=== PATIENT | female | born 1970 | race Caucasian/White ===

== ENCOUNTER 2022-10-24 04:16 | Day surgery (SDC) | payer BC ==
[2022-10-10 17:22] VITALS: BMI 25.5
[2022-10-24] MEDS ORDERED: LIDOCAINE HCL/PF 2% SDV 5ML VIAL ONE (12:04)
[2022-10-24] MEDS ORDERED: ROCURONIUM BROMIDE 50 MG/5 ML SYRINGE ONE (12:04)
[2022-10-24] MEDS ORDERED: PROPOFOL 20 ML ONE (12:04)
[2022-10-24] MEDS ORDERED: MIDAZOLAM HCL 2 MG/2 ML SINGLE DOSE VIAL ONE (12:04)
[2022-10-24] MEDS ORDERED: BUPIVACAINE HCL/PF 0.5% (5MG/ML) 10 ML VIAL ONE (12:09)
[2022-10-24] MEDS ORDERED: BUPIVACAINE HCL/PF 0.5% (5MG/ML) 10 ML VIAL IJ ONE (12:53)
[2022-10-24] MEDS ORDERED: NEOSTIGMINE METHYLSULFATE 0.5 MG/1 ML - 10 ML MDV ONE (13:23)
[2022-10-24] MEDS ORDERED: IBUPROFEN 600 MG TABLET (FP) PO PRN (13:46)
[2022-10-24] MEDS ORDERED: IBUPROFEN 800 MG/8 ML IJ IVPB PRN (13:46)
[2022-10-24] MEDS ORDERED: oxyCODONE HCL 5 MG TABLET PO PRN (13:46)
[2022-10-24] MEDS ORDERED: ONDANSETRON 4 MG/2 ML VIAL IVPUSH PRN (13:46)
[2022-10-24] MEDS ORDERED: LACTATED RINGERS SOLUTION 1,000 ML IV SCH (14:00)
[2022-10-24] MEDS ORDERED: ELECTROLYTE-148 SOLN 1,000 ML IV SCH (14:00)
[2022-10-24] MEDS ORDERED: IBUPROFEN 800 MG/8 ML IJ IVPB ONE (14:41)
[2022-10-24] MEDS ORDERED: oxyCODONE HCL 5 MG TABLET ONE (15:59)
[2022-10-24] MEDS ORDERED: oxyCODONE HCL 5 MG TABLET PO ONE (16:00)
[2022-10-24 16:08] VITALS: RESP 16
[2022-10-24 17:20] VITALS: BP 113/73; PULSE 73; TEMP 97.7
== END 2022-10-24 16:57 | disposition home or self-care (01) ==
LOC: JASU-SURG 04:16
PROVIDERS: ATTEND Obstetrics & Gynecology
PROC: 0UT74ZZ Resection of Bilateral Fallopian Tubes, Percutaneous Endoscopic Approach (ICD-10-PCS; principal; 2022-10-24 11:00)
PROC: 0UT14ZZ Resection of Left Ovary, Percutaneous Endoscopic Approach (ICD-10-PCS; 2022-10-24 11:00)
DX: N83.202 Unspecified ovarian cyst, left side (principal); N83.8 Other noninflammatory disorders of ovary, fallopian tube and broad ligament
CPT/HCPCS: 81025; 86850; 86900; 86901; 94760